=== PATIENT | male | born 1965 | race Caucasian/White ===

== ENCOUNTER → 2016-08-19 | Outpatient (CLI) | payer OTHER ==
[~2016-08-19] MED LIST: AMLO10TA2 PO; APIX5TAB PO; ATOR20TA66 PO; CARV12.53 PO; DILT180C84 PO; DOXA2TAB2 PO; LISI-552 PO; METO100T6 PO
--- NOTE | 2016-08-19 14:19 | Diagnostic Imaging Report ---
Renal ultrasound. INDICATION: Hypertension. FINDINGS: The right kidney is 10.7 cm, and the left kidney is 11.9 cm in length. There is no hydronephrosis. The left renal artery is obscured by bowel gas. The resistive index in the left kidney is 0.66 to 0.69, within normal range. The right renal artery velocities are 52, 53, and 87 cm/s from proximal/ distal with resistive index of 0.62 to 0.68. IMPRESSION: No evidence of right renal artery stenosis. The left renal artery is obscured by bowel gas. Dictated by: Dictated on workstation # [id number]
== END ==
LOC: RAD 07:40
PROVIDERS: ATTEND Internal Medicine Cardiovascular Disease
DX: I10 Essential (primary) hypertension (principal); E78.4 Other hyperlipidemia; I48.0 Paroxysmal atrial fibrillation; Z72.0 Tobacco use
CPT/HCPCS: 93975

== ENCOUNTER → 2018-06-07 | Outpatient (CLI) | payer SELFPAY ==
[~2018-06-07] VITALS: Ht 180.3 cm; Wt 88.5 kg
[~2018-06-07] MED LIST changes: -AMLO10TA2 PO; +AMLO10TA6 PO; +CATHETER FLUSH 10 ML SYR IV PRN; +REGADENOSON 0.4 MG/5 ML SYR (LEXISCAN) IV ONE
[2018-06-07 11:04] VITALS: BP 192/109
--- NOTE | 2018-06-08 15:24 | STRESS TEST ---
DATE OF SERVICE: 06/07/2018 RESTING AND POST REGADENOSON TECHNETIUM-99M TETROFOSMIN SPECT CT IMAGING CLINICAL DIAGNOSES: Paroxysmal atrial fibrillation, hypertension, tobacco use, hyperlipidemia. Baseline images were carried out after injection of 10.06 mCi technetium-99m Tetrofosmin. This was followed by 0.4 mg regadenoson and 31 mCi of Tetrofosmin-99m Tetrofosmin for stress imaging. The electrocardiogram showed sinus rhythm with nonspecific ST and T-wave abnormality at baseline. The electrocardiogram did not change significantly with the regadenoson infusion. He did not report any significant symptoms. Review of images at rest and following stress does not indicate any distinct perfusion defects consistent with significant myocardial ischemia or infarction. Some degree of diaphragmatic attenuation seen both at rest and following regadenoson infusion. Gated images show normal global left ventricular systolic function with normal regional wall motion, including the diaphragmatic wall of the left ventricle. Left ventricular ejection fraction is calculated to be 63%. Left ventricular end diastolic volume 104 mL. TID is absent (0.88). CONCLUSIONS: 1. No evidence of significant myocardial ischemia or infarction on this study. 2. Normal regional wall motion. 3. Normal global left ventricular systolic function with an ejection fraction of 63%. Job ID: [id number] DocumentID: [id number] Dictated Date: 06/08/2018 11:03:56 Membership Assistant Date: 06/08/2018 15:23:45 Dictated By: JOHNNY FERREIRA MD, MA, FACP, FACC,
== END ==
LOC: CARD 09:37
PROVIDERS: ATTEND Internal Medicine Cardiovascular Disease
DX: E78.5 Hyperlipidemia, unspecified (principal); I10 Essential (primary) hypertension; I48.0 Paroxysmal atrial fibrillation; Z72.0 Tobacco use
CPT/HCPCS: 78452; 93017

== ENCOUNTER 2022-06-01 11:07 | Observation (INO) | payer BC ==
[2022-06-01] VITALS (14 sets, daily range): BP systolic 85–186; BP diastolic 69–163
[~2022-06-01] VITALS: Ht 180.3 cm; Wt 83.0 kg
[~2022-06-01 11:07] MED LIST changes: +AMLO-251 PO; -AMLO10TA6 PO; -CATHETER FLUSH 10 ML SYR IV PRN; -LISI-552 PO; +LISI20TA26 PO; -REGADENOSON 0.4 MG/5 ML SYR (LEXISCAN) IV ONE
[2022-06-01] MEDS ORDERED: dilTIAZem DRIP PRE-MIX 125 ML IV SCH (11:45)
[2022-06-01 11:58] LABS: BASOPHILS % (AUTO) 1 % (0-10); EOSINOPHILS % (AUTO) 0 % (0-10); HEMATOCRIT 49 % (40-54); HEMOGLOBIN 16.8 g/dL (13.3-17.7); LYMPHOCYTES % (AUTO) 12 % (12-44); MEAN CORPUSCULAR HEMOGLOBIN 31 pg (25-34); MEAN CORPUSCULAR HGB CONC 34 g/dL (32-36); MEAN CORPUSCULAR VOLUME 92 fL (80-99); MEAN PLATELET VOLUME 10.5 fL (9.0-12.2); MONOCYTES # (AUTO) 0.8 10^3/uL (0.0-1.0); MONOCYTES % (AUTO) 9 % (0-12); NEUTROPHILS # (AUTO) 6.8 10^3/uL (1.8-7.8); NEUTROPHILS % (AUTO) 78 % (42-75); PLATELET COUNT 174 10^3/uL (130-400); WHITE BLOOD COUNT 8.8 10^3/uL (4.3-11.0)
[2022-06-01 12:12] LABS: INR 1.1 (0.8-1.4); PROTHROMBIN TIME PATIENT 14.7 SEC (12.2-14.7)
--- NOTE | 2022-06-01 12:14 | ED Cardiac General ---
History of Present Illness General Chief Complaint: Cardiac/General Problems Stated Complaint: IRREGULAR HEART BEAT Nursing Triage Note: PT TO RM 8 SENT BY [facility] WITH CC OF IRREGULAR HEART RATE. PT STATES WAS AT WORK THIS AM WHEN HE BECAME DIAPHORETIC AND BEGAN VOMITING. PT SEEN AT [facility] AND BELIEVED TO BE IN A-FIB RVR. PT DENIES CHEST PAIN AND NAUSEA AT THIS TIME. Source: patient Exam Limitations: no limitations History of Present Illness Date Seen by Provider: Jun 01, 2022 Time Seen by Provider: 12:02 Initial Comments This is a 56-year-old male with a history of atrial fibrillation, CVA, hypertension, hyperlipidemia, and marijuana use. he follows with [facility] for medical care and Dr. Quinones with cardiology. States that he has been out of his medications for a little over a week because the clinic would not refill them until he followed up with a provider and he missed his follow-up appointment. At work this morning he had just arrived to the building became nauseated and vomited x1 at that time he also became very diaphoretic. Symptoms lasted for about 10 minutes and then resolved. He denies any chest pain, cough, shortness of breath during the episode. He denies any recent illness, no fever, chills, abdominal pain, diarrhea, dysuria. Allergies and Home Medications Allergies Coded Allergies: No Known Drug Allergies (Unverified , 11/17/15) Patient Home Medication List Home Medication List Reviewed: Yes Amlodipine Besylate (Amlodipine Besylate) 10 Mg Tablet, 10 MG PO DAILY Prescribed by: NANI KEBEDE on 11/22/15 104 Apixaban (Eliquis) 5 Mg Tablet, 5 MG PO BID Prescribed by: NANI KEBEDE on 11/22/15 104 Atorvastatin Calcium (Atorvastatin Calcium) 20 Mg Tablet, 40 MG PO HS Prescribed by: NANI KEBEDE on 11/22/15 104 Carvedilol (Carvedilol) 12.5 Mg Tablet, 25 MG PO BID Prescribed by: NANI KEBEDE on 11/22/15 104 Diltiazem HCl (Diltiazem 24Hr Cd) 180 Mg Cap.er.24h, 360 MG PO DAILY@0900 Prescribed by: NANI KEBEDE on 11/22/15 104 Doxazosin Mesylate (Doxazosin Mesylate) 2 Mg Tablet, 2 MG PO BID Prescribed by: NANI KEBEDE on 11/22/15 104 Lisinopril (Lisinopril) 20 Mg Tablet, 40 MG PO DAILY Prescribed by: NANI KEBEDE on 11/22/15 1042 Review of Systems Review of Systems Constitutional: see HPI Past Dbdulkh-Lxnbmu-Ckkwqi Hx Patient Social History Tobacco Use?: No Substance use?: Yes Substance type: Marijuana Substance frequency: Daily Alcohol Use?: No Pt feels they are or have been: No Immunizations Up To Date Tetanus Booster (TDap): More than 5yrs Seasonal Allergies Seasonal Allergies: No Past Medical History Surgery/Hospitalization HX: STROKE, HTN Hypertension Reproductive Disorders: No Sexually Transmitted Disease: No HIV/AIDS: No Fractures Adverse Reaction/Blood Tranf: No Family Medical History FH: aneurysm 19 MOTHER FH: breast cancer 19 MOTHER Hypertension 19 FATHER 19 MOTHER G8 BROTHER G8 SISTER Physical Exam Vital Signs Vital Signs - First Documented 06/01/22 11:16 Temp 36.0 Pulse 141 Resp 25 B/P (MAP) 183/142 (156) Pulse Ox 98 O2 Delivery Room Air Capillary Refill : Less Than 3 Seconds Height, Weight, BMI Height: 5'11.00" Weight: 195lbs. 0.0oz. 88.361578ex; 26.00 BMI Method:Stated Progress/Results/Core Measures Results/Orders Lab Results Laboratory Tests Test 06/01/22 11:50 Range/Units White Blood Count 8.8 4.3-11.0 10^3/uL Red Blood Count 5.37 4.30-5.52 10^6/uL Hemoglobin 16.8 13.3-17.7 g/dL Hematocrit 49 40-54 % Mean Corpuscular Volume 92 80-99 fL Mean Corpuscular Hemoglobin 31 25-34 pg Mean Corpuscular Hemoglobin Concent 34 32-36 g/dL Red Cell Distribution Width 12.7 10.0-14.5 % Platelet Count 174 130-400 10^3/uL Mean Platelet Volume 10.5 9.0-12.2 fL Immature Granulocyte % (Auto) 0 % Neutrophils (%) (Auto) 78 H 42-75 % Lymphocytes (%) (Auto) 12 12-44 % Monocytes (%) (Auto) 9 0-12 % Eosinophils (%) (Auto) 0 0-10 % Basophils (%) (Auto) 1 0-10 % Neutrophils # (Auto) 6.8 1.8-7.8 10^3/uL Lymphocytes # (Auto) 1.0 1.0-4.0 10^3/uL Monocytes # (Auto) 0.8 0.0-1.0 10^3/uL Eosinophils # (Auto) 0.0 0.0-0.3 10^3/uL Basophils # (Auto) 0.0 0.0-0.1 10^3/uL Immature Granulocyte # (Auto) 0.0 0.0-0.1 10^3/uL Prothrombin Time 14.7 12.2-14.7 SEC INR Comment 1.1 0.8-1.4 Activated Partial Thromboplast Time 28 24-35 SEC D-Dimer 0.38 0.00-0.49 UG/ML My Orders Orders - KENY HICKS APRN Ekg Tracing (06/01/22 11:17) Cbc With Automated Diff (06/01/22 11:33) Magnesium (06/01/22 11:33) Chest 1 View, Ap/Pa Only (06/01/22 11:33) Comprehensive Metabolic Panel (06/01/22 11:33) Myoglobin Serum (06/01/22 11:33) Protime With Inr (06/01/22 11:33) Partial Thromboplastin Time (06/01/22 11:33) O2 (06/01/22 11:33) Monitor-Rhythm Ecg Trace Only (06/01/22 11:33) Ed Iv/Invasive Line Start (06/01/22 11:33) Creatine Kinase (06/01/22 11:33) Creatine Kinase Mb (06/01/22 11:33) Lipase (06/01/22 11:33) Bnp [place] (06/01/22 11:33) Fibrin Degradation Products (06/01/22 11:33) Troponin I Debby (06/01/22 11:33) Diltiazem Injection (Cardizem Injection) (06/01/22 11:45) Diltiazem Drip Pre-Mix (Cardizem Drip Pr (06/01/22 11:45) Medications Given in ED Current Medications Medications Dose Ordered Sig/Jovita Route Start Time Stop Time Status Last Admin Dose Admin Diltiazem HCl 20 mg ONCE ONCE IVP 06/01/22 11:45 06/01/22 11:46 DC 06/01/22 11:46 20 MG Vital Signs/I&O 06/01/22 06/01/22 06/01/22 11:16 11:46 11:47 Temp 36.0 Pulse 141 137 137 Resp 25 B/P (MAP) 183/142 (156) 167/85 167/85 Pulse Ox 98 O2 Delivery Room Air Blood Pressure Mean: 112 Departure Impression Primary Impression: Atrial fibrillation with RVR Departure-Patient Inst. [facility]: [facility] Primary Care Physician KENY HICKS CRACKING MACHINE OPERATOR Jun 01, 2022 12:14
[2022-06-01 12:25] LABS: ALBUMIN 3.9 GM/DL (3.2-4.5); BILIRUBIN,TOTAL 1.4 MG/DL (0.1-1.0); CALCIUM 9.2 MG/DL (8.5-10.1); CREATININE SERUM 1.8 MG/DL (0.60-1.30); MAGNESIUM 1.8 MG/DL (1.6-2.4); TOTAL PROTEIN 7.1 GM/DL (6.4-8.2)
--- NOTE | 2022-06-01 12:26 | Diagnostic Imaging Report ---
INDICATION: Chest pain COMPARISON: 11/17/2015. FINDINGS: Single frontal view of the chest demonstrates normal heart size and pulmonary vascularity. The lungs are well aerated and clear. No large pleural effusion or pneumothorax is seen. The visualized osseous structures show no acute abnormalities. IMPRESSION: 1. No acute cardiopulmonary process. Dictated by: Dictated on workstation # [id number]
[2022-06-01 12:32] LABS: CREATINE KINASE MB 2.9 NG/ML (<6.6)
[2022-06-01] MEDS ORDERED: lisINopril 20 MG (PRINIVIL) TABLET PO ONE (12:45)
[2022-06-01] MEDS ORDERED: ASPIRIN 81 MG CHEW (CHILDREN'S ASA) PO ONE (12:45)
[2022-06-01] MEDS ORDERED: APIXABAN 5 MG (ELIQUIS) TABLET PO ONE (12:45)
--- NOTE | 2022-06-01 13:23 | Consultation-Cardiology ---
HPI-Cardiology Cardiology Consultation: Date of Consultation 06/01/22 Time Seen by a Provider: 13:40 Date of Admission 06-01-22 Attending Physician [place] Admitting Physician Admitting Physician: Attending Physician: Consulting Physician Tiana Quinones MD HPI: Chief Complaint: PAF with RVR Mr. Burk is a 56 yr old male admitted to [facility] from the ED with c/o palpitations, nausea, emesis and SOB. He reported it started this morning while he was at work. He reports he felt nauseated and threw up. He states he continued to feel his heart racing and feel unwell prompting him to go to [facility]. While at [facility] they did an EKG which showed a-fib with RVR. He reports he has had episodes of palpitations "every once in awhile" that last for a few minutes and resolve. He reports heaviness in his chest when his HR is high. He is currently not reporting any palpitations. He states he has been without his medications for "quite awhile" including Eliquis. He does not recall the last time he took his meds. He states he had 3 bottles at home that had leftover pills so he took them, but he does not know what the pills were. He drinks 6 or more beers a night. He smokes marijuana 3 times a day every day. He denies any syncope or near syncope. No c/o LE swelling. Review of Systems-Cardiology Review of Systems Constitutional: No chills, No fever, No malaise Eyes: No vision change Ears/Nose/Throat: No epistaxis, No recent hearing loss Respiratory: As described under HPI Cardiovascular: As described under HPI Gastrointestinal: As described under HPI Genitourinary: No dysuria, No hematuria Skin: No rash on exposed areas, No ulcerations on exposed areas Psychiatric/Neurological: anxiety; No seizure, No focal weakness, No syncope Hematologic: No bleeding abnormalities UCU-Blscku-Hpqhoy Hx Patient Social History Have you traveled recently?: No Alcohol Use?: No Substance type: Marijuana Pt feels they are or have been: No Immunizations Up To Date Tetanus Booster (TDap): More than 5yrs Past Medical History PMH As described under Assessment. Family Medical History Family Medical History: He reports his father, mother, bother and sister all have HTN. He reports his mother had an aneurysm. Family History: 19 FATHER Hypertension 19 MOTHER Hypertension FH: aneurysm FH: breast cancer G8 BROTHER Hypertension G8 SISTER Hypertension Allergies and Home Medications Allergies Coded Allergies: No Known Drug Allergies (Unverified , 11/17/15) Patient Home Medication List Amlodipine Besylate (Amlodipine Besylate) 10 Mg Tablet, 10 MG PO DAILY Prescribed by: NANI KEBEDE on 11/22/15 1042 Apixaban (Eliquis) 5 Mg Tablet, 5 MG PO BID Prescribed by: NANI KEBEDE on 11/22/15 1042 Atorvastatin Calcium (Atorvastatin Calcium) 20 Mg Tablet, 40 MG PO HS Prescribed by: NANI KEBEDE on 11/22/15 1042 Carvedilol (Carvedilol) 12.5 Mg Tablet, 25 MG PO BID Prescribed by: NANI KEBEDE on 11/22/15 1042 Diltiazem HCl (Diltiazem 24Hr Cd) 180 Mg Cap.er.24h, 360 MG PO DAILY@0900 Prescribed by: NANI KEBEDE on 11/22/15 1042 Doxazosin Mesylate (Doxazosin Mesylate) 2 Mg Tablet, 2 MG PO BID Prescribed by: NANI KEBEDE on 11/22/15 1042 Lisinopril (Lisinopril) 20 Mg Tablet, 40 MG PO DAILY Prescribed by: NANI KEBEDE on 11/22/15 1042 Physical Exam-Cardiology Physical Exam Vital Signs/I&O 06/01/22 06/01/22 06/01/22 06/01/22 11:16 11:46 11:47 13:05 Temp 36.0 Pulse 141 137 137 82 Resp 25 20 B/P (MAP) 183/142 (156) 167/85 167/85 168/38 Pulse Ox 98 95 O2 Delivery Room Air Room Air Capillary Refill : Less Than 3 Seconds Constitutional: AAO x 3, well-developed HEENT: PERRL, hearing is well preserved, oral hygience is good Neck: No carotid bruit; carotid pulses are 2 + bilaterally Respiratory: No accessory muscle use, No respiratory distress; chest expansion is symmetric, chest is bilaterally symmetric, lungs clear to auscultation Cardiovascular: irregularly irregular; No JVD; tachycardia Gastrointestinal: No tender; soft, round, audible bowel sounds Extremities: no lower extremity edema bilateral Neurologic/Psychiatric: grossly intact (moves all extremities) Skin: No rash on exposed areas, No ulcerations on exposed areas Data Review Labs Laboratory Tests 06/01/22 11:50: White Blood Count 8.8, Red Blood Count 5.37, Hemoglobin 16.8, Hematocrit 49, Mean Corpuscular Volume 92, Mean Corpuscular Hemoglobin 31, Mean Corpuscular Hemoglobin Concent 34, Red Cell Distribution Width 12.7, Platelet Count 174, Mean Platelet Volume 10.5, Immature Granulocyte % (Auto) 0, Neutrophils (%) (Auto) 78H, Lymphocytes (%) (Auto) 12, Monocytes (%) (Auto) 9, Eosinophils (%) (Auto) 0, Basophils (%) (Auto) 1, Neutrophils # (Auto) 6.8, Lymphocytes # (Auto) 1.0, Monocytes # (Auto) 0.8, Eosinophils # (Auto) 0.0, Basophils # (Auto) 0.0, Immature Granulocyte # (Auto) 0.0, Prothrombin Time 14.7, INR Comment 1.1, Activated Partial Thromboplast Time 28, D-Dimer 0.38, Sodium Level 139, Potassium Level 4.0, Chloride Level 107, Carbon Dioxide Level 20L, Anion Gap 12, Blood Urea Nitrogen 26H, Creatinine 1.80H, Estimat Glomerular Filtration Rate 44, BUN/Creatinine Ratio 14, Glucose Level 155H, Calcium Level 9.2, Corrected Calcium 9.3, Magnesium Level 1.8, Total Bilirubin 1.4H, Aspartate Amino Transf (AST/SGOT) 20, Alanine Aminotransferase (ALT/SGPT) 28, Alkaline Phosphatase 81, Total Creatine Kinase 129, Creatine Kinase MB 2.9, Myoglobin 85.7, Troponin I 0.075H, B-Type Natriuretic Peptide 1427.5H, Total Protein 7.1, Albumin 3.9, Lipase 38 Radiology NAME: LISA BURK [facility] REC#: [id number] PT STATUS: REG ER : [id number] PHYSICIAN: KENY HICKS FURNACE HAND ADMIT DATE: 06/01/22/ER Draft Date of Exam:06/01/22 CHEST 1 VIEW, AP/PA ONLY INDICATION: Chest pain COMPARISON: 11/17/2015. FINDINGS: Single frontal view of the chest demonstrates normal heart size and pulmonary vascularity. The lungs are well aerated and clear. No large pleural effusion or pneumothorax is seen. The visualized osseous structures show no acute abnormalities. IMPRESSION: 1. No acute cardiopulmonary process. Dictated on workstation # [id number] Dict: 06/01/22 1224 Trans: 06/01/22 1226 [id number] Interpreted by: LESLI SANTANA MD Electronically signed by: ECG Impression ECG Initial ECG Impression: Atrial Fibrillation w/RVR A/P-Cardiology Assessment/Admission Diagnosis PAF with RVR Minimally elevated troponin - likely Type 2 IL secondary to a-fib with RVR MPI of 06/07/19 did not show coronary ischemia or infarction, LVEF 63% Echocardiogram from November 18, 2015 showed moderate concentric left ventricular hypertrophy and moderate enlargement of the left atrium. Normal global left ventricular systolic function with an ejection fraction of approximately 60%. Trivial to mild mitral and tricuspid regurgitation. No evidence of any significant valvular stenosis. HTN Non-compliance with medications and f/u HLP - statin therapy H/o heavy ETOH use - cessation advised (6 beers or more nightly) Carotid dz CTA of the neck on 11-17-15 showed bilat mod ICA stenosis Carotid u/s of 07/25/18 shows mild bilat carotid arterial disease H/o renal insufficiency of undetermined age, being followed by his PCP - Renal artery u/s of August 2016 showed no evidence of right renal artery stenosis. Left renal artery is obscured by bowel gas Marijuana use (smokes 3 times a day) - cessation advised Discussion and Recomendations PAF with RVR - Oral Cardizem has been started - Add BB for HR control and BP control - Eliquis for stroke prophylaxis - Echocardiogram to eval structure and function Discussed importance of compliance with medications/instructions and f/u Monitor lab Replace electrolytes as indicated Further recs will be based on his hospital course We would like to thank medical services for this consult ELLIOT SHEPARD Jun 01, 2022 13:23
[2022-06-01] MEDS ORDERED: MILK OF MAGNESIA 400 MG/5 ML 30 ML UDC PO PRN (14:00)
[2022-06-01] MEDS ORDERED: diphenhydrAMINE 25 MG TAB (BENADRYL) PO PRN (14:00)
[2022-06-01] MEDS ORDERED: cloNIDine 0.1 MG (CATAPRES) TAB PO PRN (14:00)
[2022-06-01] MEDS ORDERED: MELATONIN 3 MG TABLET PO PRN (14:00)
[2022-06-01] MEDS ORDERED: diphenhydrAMINE 50 MG/ML INJ (BENADRYL) IVP PRN (14:00)
[2022-06-01] MEDS ORDERED: polyethylene glycoL POWDER 17 GM (MIRALAX) PACK PO PRN (14:00)
[2022-06-01] MEDS ORDERED: LACTULOSE SYRUP 10GM/15ML (ENULOSE) 30ML UDC PO PRN (14:00)
[2022-06-01] MEDS ORDERED: BISACODYL 10 MG SUPP (DULCOLAX) PR PRN (14:00)
[2022-06-01] MEDS ORDERED: HYDROmorphone 2 MG/ML VIAL (DILAUDID) IV PRN (14:00)
[2022-06-01] MEDS ORDERED: ACETAMINOPHEN 325 MG TABLET PO PRN (14:00)
[2022-06-01] MEDS ORDERED: ANTACID SUSP 30 ML UDC (MYLANTA) PO PRN (14:00)
[2022-06-01] MEDS ORDERED: ONDANSETRON 4 MG/2 ML (SDV) Z0FRAN IV PRN (14:00)
[2022-06-01] MEDS ORDERED: CALCIUM CARBONATE 500 MG (TUMS) TAB.CHEW PO PRN (14:00)
[2022-06-01] MEDS ORDERED: ONDANSETRON 4 MG (ZOFRAN) ORAL DISSOLVE TAB PO PRN (14:00)
[2022-06-01] MEDS ORDERED: ALPRAZolam 0.5 MG (XANAX) TAB PO PRN (14:15)
[2022-06-01] MEDS ORDERED: meTOproloL SUCCINATE 50 MG (TOPROL XL) TAB PO NR (14:30)
[2022-06-01] MEDS: SENNOSIDES 8.6 MG (SENOKOT) TAB PO SCH (20:50)
[2022-06-01] MEDS: hydrALAZINE (APRESOLINE) 25 MG TAB PO SCH (20:50)
[2022-06-01] MEDS: DOCUSATE SODIUM 100 MG (COLACE) CAP PO SCH (20:50)
[2022-06-01] MEDS: APIXABAN 5 MG (ELIQUIS) TABLET PO SCH (20:50)
[2022-06-02] VITALS (18 sets, daily range): BP systolic 102–148; BP diastolic 67–126
[2022-06-02 05:47] LABS: BASOPHILS # (AUTO) 0.1 10^3/uL (0.0-0.1); BASOPHILS % (AUTO) 1 % (0-10); EOSINOPHILS # (AUTO) 0.1 10^3/uL (0.0-0.3); EOSINOPHILS % (AUTO) 1 % (0-10); HEMATOCRIT 49 % (40-54); HEMOGLOBIN 16.4 g/dL (13.3-17.7); LYMPHOCYTES # (AUTO) 1.2 10^3/uL (1.0-4.0); LYMPHOCYTES % (AUTO) 14 % (12-44); MEAN CORPUSCULAR HEMOGLOBIN 31 pg (25-34); MEAN CORPUSCULAR HGB CONC 34 g/dL (32-36); MEAN CORPUSCULAR VOLUME 92 fL (80-99); MEAN PLATELET VOLUME 11.1 fL (9.0-12.2); MONOCYTES # (AUTO) 0.8 10^3/uL (0.0-1.0); MONOCYTES % (AUTO) 10 % (0-12); NEUTROPHILS # (AUTO) 6.1 10^3/uL (1.8-7.8); NEUTROPHILS % (AUTO) 75 % (42-75); PLATELET COUNT 173 10^3/uL (130-400); WHITE BLOOD COUNT 8.2 10^3/uL (4.3-11.0)
[2022-06-02 06:23] LABS: ALBUMIN 3.5 GM/DL (3.2-4.5); BILIRUBIN,TOTAL 1.5 MG/DL (0.1-1.0); CALCIUM 8.9 MG/DL (8.5-10.1); CREATININE SERUM 1.56 MG/DL (0.60-1.30); MAGNESIUM 1.8 MG/DL (1.6-2.4); POTASSIUM 4.1 MMOL/L (3.6-5.0); TOTAL PROTEIN 6.5 GM/DL (6.4-8.2)
--- NOTE | 2022-06-02 07:02 | Short Stay Summary-Hospitalist ---
History of Present Illness HPI/Chief Complaint Chief complaint: A. fib with RVR HPI: This is a 56-year-old male with known history of A. fib who ran out of his medicine who presented to the ER with A. fib with RVR. Patient is currently doing much better after Cardizem drip in the ER and transition to p.o. Echo showed very low ejection fraction so cardiac catheterization will be completed today Source: patient Exam Limitations: no limitations Date Seen 06/02/22 Time Seen by a Provider: 10:00 Attending Physician [place] PCP Admitting Physician: Sharon Tavarez DO Attending Physician: Sharon Tavarez DO Referring Physician Date of Admission Jun 01, 2022 at 13:36 Home Medications & Allergies Home Medications Reviewed patient Home Medication Reconciliation performed by pharmacy medication reconciliations ct technician and/or nursing. Patients Allergies have been reviewed. Allergies Allergies Coded Allergies No Known Drug Allergies (Unverified11/17/15) Past Xcmlgya-Wtgtbc-Wqxxml Hx Patient Social History Marrital Status: single Employed/Student: employed Tobacco Use?: No Smoking Status: Current Everyday Smoker Smokeless Tobacco Frequency: Never a User Use of E-Cig and/or Vaping dev: No Substance use?: Yes Substance type: Marijuana Substance frequency: Daily Alcohol Use?: Yes Alcohol type: Beer Alcohol Frequency: Couple times a week Pt feels they are or have been: No Immunizations Up To Date Hepatitis A: No Hepatitis B: No Seasonal Allergies Seasonal Allergies: No Current Status Advance Directives: No Communicates: Verbally Primary Language: [place] Citizen Preferred Spoken Language: [place] Citizen Is interpretation needed?: No Implanted or Applied Medical D: None Past Medical History Atrial Fibrillation, Hypertension Sexually Transmitted Disease: No HIV/AIDS: No Fractures Adverse Reaction/Blood Tranf: No Family Medical History FH: aneurysm 19 MOTHER FH: breast cancer 19 MOTHER Hypertension 19 FATHER 19 MOTHER G8 BROTHER G8 SISTER Review of Systems Constitutional: see HPI Respiratory: short of breath Cardiovascular: chest pain, edema Physical Exam Physical Exam Vital Signs Vital Signs - First Documented 06/01/22 06/01/22 11:16 23:54 Temp 36.0 Pulse 141 Resp 25 B/P (MAP) 183/142 (156) Pulse Ox 98 O2 Delivery Room Air O2 Flow Rate 2.00 Capillary Refill : Less Than 3 Seconds Height, Weight, BMI Height: 5'11.00" Weight: 195lbs. 0.0oz. 88.411566nl; 26.45 BMI Method:Stated General Appearance: No Apparent Distress, WD/WN Eyes: Bilateral Eye Normal Inspection, Bilateral Eye PERRL HEENT: PERRL/EOMI, Normal ENT Inspection, Pharynx Normal Neck: Full Range of Motion, Normal Inspection, Non Tender, Supple, Carotid Bruit Respiratory: Chest Non Tender, Lungs Clear, Normal Breath Sounds, No Accessory Muscle Use, No Respiratory Distress Cardiovascular: Regular Rate, Rhythm, No Edema, No Gallop, No JVD, No Murmur, Normal Peripheral Pulses Gastrointestinal: Normal Bowel Sounds, No Organomegaly, No Pulsatile Mass, Non Tender, Soft Back: Normal Inspection, No CVA Tenderness, No Vertebral Tenderness Extremity: Normal Capillary Refill, Normal Inspection, Normal Range of Motion, Non Tender, No Calf Tenderness, No Pedal Edema Neurologic/Psychiatric: Alert, Oriented x3, No Motor/Sensory Deficits, Normal Mood/Affect Skin: Normal Color, Warm/Dry Lymphatic: No Adenopathy Results Results/Procedures Labs Laboratory Tests 06/01/22 11:50 06/02/22 05:28 Patient resulted labs reviewed. Short Stay Diagnosis Discharge Diagnosis-Short Stay Admission Diagnosis Assessment: A. fib with RVR Noncompliant with medication regimen Final Discharge Diagnosis A. fib with RVR Chronic A. fib Systolic dysfunction Conclusion Plan Cardiac catheterization SHARON TAVAREZ DO Jun 02, 2022 07:02
[2022-06-02] MEDS: APIXABAN 5 MG (ELIQUIS) TABLET PO SCH ×2 (08:29→21:14)
[2022-06-02] MEDS: hydrALAZINE (APRESOLINE) 25 MG TAB PO SCH ×3 (08:34→21:12)
--- NOTE | 2022-06-02 08:56 | Progress Note - Cardiology ---
Cardiology SOAP Progress Note Subjective: Denies any c/o CP or palpitations Reports DRISCOLL Objective: I&O/Vital Signs 06/03/22 23:59 Intake Total 650 ml Output Total 1 ml Balance 649 ml Weight (Pounds): 195 Weight (Ounces): 0.0 Weight (Calculated Kilograms): 88.452393 Constitutional: AAO x 3, well-developed Respiratory: No accessory muscle use, No respiratory distress; chest expansion is symmetric, chest is bilaterally symmetric, lungs clear to auscultation Cardiovascular: irregularly irregular; No JVD; tachycardia Gastrointestional: No tender; soft, round, audible bowel sounds Extremities: no lower extremity edema bilateral Neurologic/Psychiatric: grossly intact (moves all extremities) Skin: No rash on exposed areas, No ulcerations on exposed areas Results/Procedures: Labs A/P: Assessment: WCT - seen on tele overnight PAF with RVR Minimally elevated troponin - likely Type 2 TN secondary to a-fib with RVR MPI of 06/07/19 did not show coronary ischemia or infarction, LVEF 63% Echocardiogram from November 18, 2015 showed moderate concentric left ventricular hypertrophy and moderate enlargement of the left atrium. Normal global left ventricular systolic function with an ejection fraction of approximately 60%. Trivial to mild mitral and tricuspid regurgitation. No evidence of any significant valvular stenosis. HTN Non-compliance with medications and f/u HLP - statin therapy H/o heavy ETOH use - cessation advised (6 beers or more nightly) Carotid dz CTA of the neck on 11-17-15 showed bilat mod ICA stenosis Carotid u/s of 07/25/18 shows mild bilat carotid arterial disease H/o renal insufficiency of undetermined age, being followed by his PCP - Renal artery u/s of August 2016 showed no evidence of right renal artery stenosis. Left renal artery is obscured by bowel gas Marijuana use (smokes 3 times a day) - cessation advised Plan: Episodes of WCT overnight - advise cardiac cath. We have discussed the procedure, risks, benefits and potential complications of cardiac cath with possible ad hoc coronary intervention. He provides informed consent. PAF with RVR - rate controlled - WCT overnight - Continue Eliquis for stroke prophylaxis - Echocardiogram to eval structure and function Discussed importance of compliance with medications/instructions and f/u Monitor lab Replace electrolytes as indicated ELLIOT SHEPARD Jun 02, 2022 08:56
[2022-06-02] MEDS ORDERED: meTOproloL SUCCINATE 50 MG (TOPROL XL) TAB PO SCH (09:00)
[2022-06-02] MEDS ORDERED: ASPIRIN 81 MG CHEW (CHILDREN'S ASA) PO SCH (09:00)
[2022-06-02] MEDS ORDERED: NS IV 1000 ML 1,000 ML IV SCH ×2 (09:00→17:00)
[2022-06-02] MEDS: DOCUSATE SODIUM 100 MG (COLACE) CAP PO SCH ×2 (09:20→21:14)
[2022-06-02] MEDS: SENNOSIDES 8.6 MG (SENOKOT) TAB PO SCH ×2 (09:21→21:14)
[2022-06-02] MEDS ORDERED: LIDOCAINE 1% INJ 30 ML (XYLOCAINE) VIAL ONE (11:19)
[2022-06-02] MEDS ORDERED: HEParin (CATH LAB) 2,000 ML IV ONE (11:20)
[2022-06-02] MEDS ORDERED: meTOproloL SUCCINATE 50 MG (TOPROL XL) TAB PO ONE (12:45)
[2022-06-02] MEDS ORDERED: fentaNYL INJ 100 MCG/2 ML AMP ONE (15:50)
[2022-06-02] MEDS ORDERED: MIDAZOLAM 5 MG/5 ML (VERSED) VIAL ONE (15:50)
--- NOTE | 2022-06-02 16:41 | Progress Note - Cardiology ---
Cardiology SOAP Progress Note Subjective: No cp or palp or syncope or shortness of breath at rest Gen weakness Poor stamina No n/v/d No focal weakness Denies swelling Objective: I&O/Vital Signs 06/02/22 06/02/22 06/02/22 06/02/22 07:00 07:52 08:00 11:35 Temp 36.5 36.6 Pulse 79 75 86 Resp 7 15 B/P (MAP) 143/106 (118) 129/100 (110) Pulse Ox 98 99 95 O2 Delivery Room Air 06/02/22 13:00 Pulse 68 06/02/22 00:00 Intake Total 500 ml Balance 500 ml Weight (Pounds): 195 Weight (Ounces): 0.0 Weight (Calculated Kilograms): 88.712380 Constitutional: AAO x 3, well-developed Respiratory: No accessory muscle use, No respiratory distress; chest expansion is symmetric, chest is bilaterally symmetric, lungs clear to auscultation Cardiovascular: irregularly irregular; No JVD; tachycardia Gastrointestional: No tender; soft, round, audible bowel sounds Extremities: no lower extremity edema bilateral Neurologic/Psychiatric: other (moves all limbs equally) Skin: No rash on exposed areas, No ulcerations on exposed areas Results/Procedures: Labs Laboratory Tests 06/02/22 05:28: White Blood Count 8.2, Red Blood Count 5.29, Hemoglobin 16.4, Hematocrit 49, Mean Corpuscular Volume 92, Mean Corpuscular Hemoglobin 31, Mean Corpuscular Hemoglobin Concent 34, Red Cell Distribution Width 12.6, Platelet Count 173, Mean Platelet Volume 11.1, Immature Granulocyte % (Auto) 0, Neutrophils (%) (Auto) 75, Lymphocytes (%) (Auto) 14, Monocytes (%) (Auto) 10, Eosinophils (%) (Auto) 1, Basophils (%) (Auto) 1, Neutrophils # (Auto) 6.1, Lymphocytes # (Auto) 1.2, Monocytes # (Auto) 0.8, Eosinophils # (Auto) 0.1, Basophils # (Auto) 0.1, Immature Granulocyte # (Auto) 0.0, Sodium Level 141, Potassium Level 4.1, Chloride Level 108H, Carbon Dioxide Level 23, Anion Gap 10, Blood Urea Nitrogen 27H, Creatinine 1.56H, Estimat Glomerular Filtration Rate 52, BUN/Creatinine Ratio 17, Glucose Level 124H, Calcium Level 8.9, Corrected Calcium 9.3, Magnesium Level 1.8, Total Bilirubin 1.5H, Aspartate Amino Transf (AST/SGOT) 16, Alanine Aminotransferase (ALT/SGPT) 24, Alkaline Phosphatase 77, Total Protein 6.5, Albumin 3.5, Triglycerides Level 87, Cholesterol Level 199, LDL Cholesterol Direct 133H, VLDL Cholesterol 17, HDL Cholesterol 51 Laboratory Tests 06/01/22 11:50 06/02/22 05:28 A/P: Assessment: NSVT - seen on tele of 10/30 and 10/31/21 PAF with RVR Minimally elevated troponin - likely Type 2 NV secondary to a-fib with RVR Dilated cardiomyopathy: probably alcohol related, also consider sleep apnea - Echo of 06/02/22: LVEF 25-30%, global hypokinesis - Card cath of 06/02/22: No significant CAD, LVEDP 9 mmHg, LVEF approx 30%, global hypokinesis HTN Non-compliance with medications and f/u HLP - statin therapy H/o heavy ETOH use - cessation advised (6 beers or more nightly) Carotid dz CTA of the neck on 11-17-15 showed bilat mod ICA stenosis Carotid u/s of 07/25/18 shows mild bilat carotid arterial disease Renal insufficiency, probably acute Marijuana use (smokes 3 times a day) - cessation advised Plan: * To eval his WCT, we advised cardiac cath and carried it out after discussing the procedure, risks, benefits and potential complications of cardiac cath with possible ad hoc coronary intervention. He provided informed consent. Results are summarized above * We advise alcohol and marijuana cessation * We recommend sleep studies * We recommend heart failure meds: Entresto, carvedilol, spironolactone, SGLT-2 inhib * Optimize above meds. Titrate to bp and renal function and electrolytes * Monitor labs closely * Add dig because of systolic heart failure and also to control heart rate * D/c Cardizem CD to provide more room on bp * Maintain tele * Advise Life Vest at time of d/c JOHNNY FERREIRA MD [facility] CCDS Jun 02, 2022 16:41
[2022-06-02] MEDS ORDERED: PATIENT MAY USE OWN MEDS, ALL PO SCH (17:00)
[2022-06-02] MEDS ORDERED: DIGOXIN 0.125 MG (LANOXIN) TAB PO NR (17:00)
[2022-06-02] MEDS: SACUBITRIL/VALSARTAN 24/26 MG (ENTRESTO) TABLET PO SCH (21:14)
[2022-06-03] VITALS: BP 135/92
[2022-06-03 03:10] VITALS: BP 109/77
[2022-06-03 06:29] LABS: BASOPHILS # (AUTO) 0.1 10^3/uL (0.0-0.1); BASOPHILS % (AUTO) 1 % (0-10); EOSINOPHILS # (AUTO) 0.1 10^3/uL (0.0-0.3); EOSINOPHILS % (AUTO) 1 % (0-10); HEMATOCRIT 51 % (40-54); HEMOGLOBIN 17.5 g/dL (13.3-17.7); LYMPHOCYTES # (AUTO) 0.9 10^3/uL (1.0-4.0); LYMPHOCYTES % (AUTO) 11 % (12-44); MEAN CORPUSCULAR HEMOGLOBIN 31 pg (25-34); MEAN CORPUSCULAR HGB CONC 34 g/dL (32-36); MEAN CORPUSCULAR VOLUME 91 fL (80-99); MONOCYTES # (AUTO) 0.7 10^3/uL (0.0-1.0); MONOCYTES % (AUTO) 8 % (0-12); NEUTROPHILS # (AUTO) 7.2 10^3/uL (1.8-7.8); NEUTROPHILS % (AUTO) 80 % (42-75); PLATELET COUNT 174 10^3/uL (130-400); WHITE BLOOD COUNT 8.9 10^3/uL (4.3-11.0)
[2022-06-03 06:39] LABS: ALBUMIN 3.5 GM/DL (3.2-4.5); POTASSIUM 3.8 MMOL/L (3.6-5.0)
[2022-06-03 06:40] LABS: CALCIUM 8.9 MG/DL (8.5-10.1)
[2022-06-03 06:41] LABS: TOTAL PROTEIN 6.6 GM/DL (6.4-8.2)
[2022-06-03 06:43] LABS: BILIRUBIN,TOTAL 1.5 MG/DL (0.1-1.0)
[2022-06-03 06:45] LABS: CREATININE SERUM 1.42 MG/DL (0.60-1.30)
[2022-06-03 08:00] VITALS: BP 129/104
[2022-06-03] MEDS ORDERED: DIGOXIN 0.25 MG (LANOXIN) TAB PO SCH (09:00)
[2022-06-03] MEDS ORDERED: EMPAGLIFLOZIN 10 MG TABLET (JARDIANCE) PO SCH (09:00)
[2022-06-03] MEDS ORDERED: SPIRONOLACTONE 25 MG (ALDACTONE) TAB PO SCH (09:00)
[2022-06-03] MEDS ORDERED: EMPA10TA PO (09:04)
[2022-06-03] MEDS ORDERED: SPIR25TA5 PO (09:04)
[2022-06-03] MEDS ORDERED: SACU1TAB2 PO (09:04)
[2022-06-03] MEDS ORDERED: CARV12.53 PO (09:05)
[2022-06-03] MEDS: SACUBITRIL/VALSARTAN 24/26 MG (ENTRESTO) TABLET PO SCH (09:08)
[2022-06-03] MEDS: hydrALAZINE (APRESOLINE) 25 MG TAB PO SCH ×2 (09:08→13:13)
[2022-06-03] MEDS: APIXABAN 5 MG (ELIQUIS) TABLET PO SCH (09:08)
[2022-06-03] MEDS ORDERED: DIGO250T15 PO (09:11)
[2022-06-03] MEDS: DOCUSATE SODIUM 100 MG (COLACE) CAP PO SCH (09:14)
[2022-06-03] MEDS: SENNOSIDES 8.6 MG (SENOKOT) TAB PO SCH (09:15)
[2022-06-03] MEDS ORDERED: CARV25TA PO (09:21)
--- NOTE | 2022-06-03 10:03 | Discharge Summary ---
Discharge Summary Hospital Course Was the Problem List Reviewed?: Yes Problems/Dx: (1) Dilated cardiomyopathy (2) Atrial fibrillation with RVR Status: Acute Hospital Course Date of Admission: Jun 01, 2022 at 13:36 Admission Diagnosis : [facility]: 06/03/22 Discharge Diagnosis: [ ] Hospital Course: Short course after he was admitted for A. fib with RVR after he ran out of his medications. Echocardiogram showed low systolic function so he underwent cardiac catheterization which showed no evidence of obstructive coronary disease studies pending for LifeVest and all medications initiated per protocol he was discharged in improved condition. Labs and Pending Lab Test: Laboratory Tests 06/03/22 05:55: White Blood Count 8.9, Red Blood Count 5.61H, Hemoglobin 17.5, Hematocrit 51, Mean Corpuscular Volume 91, Mean Corpuscular Hemoglobin 31, Mean Corpuscular Hemoglobin Concent 34, Red Cell Distribution Width 12.4, Platelet Count 174, Mean Platelet Volume 11.0, Immature Granulocyte % (Auto) 0, Neutrophils (%) (Auto) 80H, Lymphocytes (%) (Auto) 11L, Monocytes (%) (Auto) 8, Eosinophils (%) (Auto) 1, Basophils (%) (Auto) 1, Neutrophils # (Auto) 7.2, Lymphocytes # (Auto) 0.9L, Monocytes # (Auto) 0.7, Eosinophils # (Auto) 0.1, Basophils # (Auto) 0.1, Immature Granulocyte # (Auto) 0.0, Sodium Level 137, Potassium Level 3.8, Chloride Level 106, Carbon Dioxide Level 19L, Anion Gap 12, Blood Urea Nitrogen 20H, Creatinine 1.42H, Estimat Glomerular Filtration Rate 59, BUN/Creatinine Ratio 14, Glucose Level 150H, Calcium Level 8.9, Corrected Calcium 9.3, Total Bilirubin 1.5H, Aspartate Amino Transf (AST/SGOT) 16, Alanine Aminotransferase (ALT/SGPT) 21, Alkaline Phosphatase 83, Total Protein 6.6, Albumin 3.5 Home Meds Active Carvedilol 25 Mg Tablet 25 Mg PO BID Digox (Digoxin) 250 Mcg (0.25 Mg) Tablet 0.25 Mg PO DAILY Carvedilol 12.5 Mg Tablet 25 Mg PO BID Jardiance (Empagliflozin) 10 Mg Tablet 10 Mg PO DAILY Spironolactone 25 Mg Tablet 25 Mg PO DAILY Entresto 24 mg-26 mg Tablet (Sacubitril/Valsartan) 24 Mg-26 Mg Tablet 1 Tab PO BID Lisinopril 20 Mg Tablet 40 Mg PO DAILY Diltiazem 24Hr Cd (Diltiazem HCl) 180 Mg Cap.er.24h 360 Mg PO DAILY@0900 Amlodipine Besylate 10 Mg Tablet 10 Mg PO DAILY Doxazosin Mesylate 2 Mg Tablet 2 Mg PO BID Atorvastatin Calcium 20 Mg Tablet 40 Mg PO HS Eliquis (Apixaban) 5 Mg Tablet 5 Mg PO BID Assessment/Pt Instructions PCP in 1 week Discharge Planning: <30 minutes discharge planning Discharge Physical Examination Vital Signs Vital Signs Date Time Temp Pulse Resp B/P (MAP) Pulse Ox O2 Delivery O2 Flow Rate FiO2 06/03/22 08:08 Room Air 06/03/22 08:00 36.7 69 24 129/104 (112) 97 06/02/22 18:00 2.00 General Appearance: No Apparent Distress, WD/WN, Chronically ill Allergies: Coded Allergies: No Known Drug Allergies (Unverified , 11/17/15) Discharge Summary Date of Admission Jun 01, 2022 at 13:36 Date of Discharge Discharge Date: Jun 03, 2022 Admission Diagnosis Assessment: A. fib with RVR Noncompliant with medication regimen Discharge Diagnosis Cardiac catheterization LAUREN NEFF DO Jun 03, 2022 10:03
[2022-06-03] MEDS ORDERED: APIX5TAB PO ×2 (10:39→11:42)
[2022-06-03] MEDS ORDERED: ATOR20TA66 PO (10:39)
[2022-06-03 12:00] VITALS: BP 123/104
[2022-06-03 18:36] VITALS: BP 123/104
--- NOTE | 2022-06-03 18:50 | Progress Note - Cardiology ---
Cardiology SOAP Progress Note Subjective: shortness of breath better no cp or palp or syncope no n/v/d no groin or leg discomfort or discoloration mild gen weakness wishes to go home Objective: I&O/Vital Signs 06/03/22 06/03/22 06/03/22 06/03/22 07:00 08:00 08:00 08:08 Temp 36.7 Pulse 89 69 Resp 24 B/P (MAP) 129/104 (112) Pulse Ox 99 97 O2 Delivery Room Air Room Air Room Air 06/03/22 06/03/22 06/03/22 06/03/22 10:20 12:00 13:00 16:00 Temp 36.8 36.8 Pulse 81 94 Resp 18 B/P (MAP) 123/104 (110) Pulse Ox 98 97 O2 Delivery Room Air Room Air 06/03/22 18:36 Temp 36.8 Pulse 94 Resp 18 B/P (MAP) 123/104 Pulse Ox 97 O2 Delivery Room Air 06/03/22 00:00 Intake Total 600 ml Balance 600 ml Weight (Pounds): 195 Weight (Ounces): 0.0 Weight (Calculated Kilograms): 88.456064 Constitutional: AAO x 3, well-developed Respiratory: No accessory muscle use, No respiratory distress; chest expansion is symmetric, chest is bilaterally symmetric, lungs clear to auscultation Cardiovascular: irregularly irregular; No JVD; tachycardia Gastrointestional: No tender; soft, round, audible bowel sounds Extremities: no lower extremity edema bilateral Neurologic/Psychiatric: other (moves all limbs equally) Skin: No rash on exposed areas, No ulcerations on exposed areas Results/Procedures: Labs Laboratory Tests 06/03/22 05:55: White Blood Count 8.9, Red Blood Count 5.61H, Hemoglobin 17.5, Hematocrit 51, Mean Corpuscular Volume 91, Mean Corpuscular Hemoglobin 31, Mean Corpuscular Hemoglobin Concent 34, Red Cell Distribution Width 12.4, Platelet Count 174, Mean Platelet Volume 11.0, Immature Granulocyte % (Auto) 0, Neutrophils (%) ( Auto) 80H, Lymphocytes (%) (Auto) 11L, Monocytes (%) (Auto) 8, Eosinophils (%) (Auto) 1, Basophils (%) (Auto) 1, Neutrophils # (Auto) 7.2, Lymphocytes # (Auto) 0.9L, Monocytes # (Auto) 0.7, Eosinophils # (Auto) 0.1, Basophils # (Auto) 0.1, Immature Granulocyte # (Auto) 0.0, Sodium Level 137, Potassium Level 3.8, Chloride Level 106, Carbon Dioxide Level 19L, Anion Gap 12, Blood Urea Nitrogen 20H, Creatinine 1.42H, Estimat Glomerular Filtration Rate 59, BUN/Creatinine Ratio 14, Glucose Level 150H, Calcium Level 8.9, Corrected Calcium 9.3, Total Bilirubin 1.5H, Aspartate Amino Transf (AST/SGOT) 16, Alanine Aminotransferase (ALT/SGPT) 21, Alkaline Phosphatase 83, Total Protein 6.6, Albumin 3.5 Laboratory Tests 06/02/22 05:28 06/03/22 05:55 A/P: Assessment: NSVT - seen on tele of 10/30 and 10/31/21 PAF with RVR Minimally elevated troponin - likely Type 2 NV secondary to a-fib with RVR Dilated cardiomyopathy: probably alcohol related, also consider sleep apnea - Echo of 06/02/22: LVEF 25-30%, global hypokinesis - Card cath of 06/02/22: No significant CAD, LVEDP 9 mmHg, LVEF approx 30%, global hypokinesis HTN Non-compliance with medications and f/u HLP - statin therapy H/o heavy ETOH use - cessation advised (6 beers or more nightly) Carotid dz CTA of the neck on 11-17-15 showed bilat mod ICA stenosis Carotid u/s of 07/25/18 shows mild bilat carotid arterial disease Renal insufficiency, probably acute Marijuana use (smokes 3 times a day) - cessation advised Plan: * To eval his WCT, we advised cardiac cath and carried it out. Results are summarized above * We advise alcohol and marijuana cessation * We recommend sleep studies * We recommend heart failure meds: Entresto, carvedilol, spironolactone, SGLT-2 inhib * Optimize above meds. Titrate to bp and renal function and electrolytes. Increase carvedilol today * Monitor labs closely * Added dig because of systolic heart failure and also to control heart rate * D/c'd Cardizem CD to provide more room on bp * Advise Life Vest at time of d/c * Close outpt f/u advised * Questions answered HANNA,ALI MD FACP FACC CCDS Jun 03, 2022 18:50
== END 2022-06-03 18:38 | disposition home or self-care (01) ==
LOC: EDUNIT# 11:07 → ER 11:11 → CSD 13:36
PROVIDERS: ADMIT Internal Medicine; ATTEND Internal Medicine
DX: I48.0 Paroxysmal atrial fibrillation (principal); I42.0 Dilated cardiomyopathy; I10 Essential (primary) hypertension; E78.5 Hyperlipidemia, unspecified; I65.23 Occlusion and stenosis of bilateral carotid arteries; F12.90 Cannabis use, unspecified, uncomplicated; N28.9 Disorder of kidney and ureter, unspecified; Z79.01 Long term (current) use of anticoagulants
CPT/HCPCS: 71045; 80053 ×3; 80061; 82550; 82553; 83690; 83735 ×2; 83874; 83880; 84484; 85025 ×3; 85379; 85610; 85730; 93005; 93041; 93458; 93567; 94760; 99283; C1760; C1894; C8929; 36415; 93306

== ENCOUNTER → 2022-09-18 | Outpatient (CLI) | payer BC ==
[~2022-09-18] MED LIST changes: +CARV25TA PO; +DIGO250T15 PO; +EMPA10TA PO; +SACU1TAB2 PO; +SPIR25TA5 PO
== END ==
LOC: CARD 09:06
PROVIDERS: ATTEND Nurse Practitioner Family
DX: I42.0 Dilated cardiomyopathy (principal); I35.1 Nonrheumatic aortic (valve) insufficiency; I51.7 Cardiomegaly
CPT/HCPCS: 93306